=== PATIENT | female | born 1970 | race Caucasian/White ===

== ENCOUNTER → 2018-11-02 | Outpatient (CLI) | payer BC ==
[~2018-11-02] MED LIST: CIPRO 500MG TA500 MG PO; FLAGYL 250250 MG/TAB PO; LOMOTIL 0.025 M1 TAB PO; NO HOME MEDICATIONS; PHENERGAN 25 TA25 MG PO
== END ==
LOC: MC.RAD 11:30
DX: Z12.31 Encounter for screening mammogram for malignant neoplasm of breast (principal)

== ENCOUNTER → 2020-01-18 | Outpatient (CLI) | payer BC | LOC: ZCOL.LAB 18:46 | DX: Z20.828 Contact with and (suspected) exposure to other viral communicable diseases (principal) ==

== ENCOUNTER → 2020-12-24 | Outpatient (CLI) | payer BC | LOC: MC.RAD 09:34 | DX: Z12.31 Encounter for screening mammogram for malignant neoplasm of breast (principal) ==

== ENCOUNTER → 2023-12-30 | Outpatient (CLI) | payer BC | LOC: COL.LAB 08:02 | DX: E11.9 Type 2 diabetes mellitus without complications (principal) ==